=== PATIENT | male | born 1950 | race African-American/Black ===

== ENCOUNTER 2019-03-09 08:06 | Emergency (ER) | payer SELFPAY ==
[~2019-03-09] VITALS: Ht 182.9 cm; Wt 105.0 kg
[2019-03-09 08:45] VITALS: BP 150/92
== END 2019-03-09 09:09 | disposition home or self-care (01) ==
LOC: ER 08:06
DX: B02.9 Zoster without complications (principal); R03.0 Elevated blood-pressure reading, without diagnosis of hypertension
CPT/HCPCS: 99283

== ENCOUNTER 2021-03-03 22:47 | Inpatient (IN) | payer OTHER, MEDICARE ==
[~2021-03-03] VITALS: Ht 182.9 cm; Wt 100.4 kg
[2021-03-03] MEDS ORDERED: NITROGLYCERIN OINT 1GM/INCH UDPKT TD ONE (23:30)
[2021-03-03] MEDS ORDERED: ASPIRIN 81MG TABLET PO ONE (23:30)
[2021-03-04 01:47] LABS: CHLORIDE 109 mEq/L (98-107)
[2021-03-04 01:56] LABS: BASOPHILS % 0.7 % (0.0-2.0); EOSINOPHILS % 1.3 % (0.0-5.0); HEMATOCRIT. 43.9 % (42.0-52.0); HEMOGLOBIN. 14.6 g/dL (14.0-18.0); LYMPHOCYTES % 36.1 % (20.0-50.0); MEAN CORPUSCULAR HEMOGLOBIN 29.6 pg (28.0-32.0); MEAN CORPUSCULAR VOLUME 89.2 fL (80.0-94.0); MEAN PLATELET VOLUME 8.3 fl (7.4-10.4); MONOCYTES % 11.9 % (2.0-8.0); PLATELET 181 x1000/uL (130-400); RED BLOOD CELL COUNT 4.92 mill/uL (4.7-6.1); RED CELL DISTRIBUTION WIDTH 13.3 % (11.6-14.6)
[2021-03-04] MEDS ORDERED: ACETAMINOPHEN 325MG TABLET PO PRN (08:45)
[2021-03-04] MEDS ORDERED: ONDANSETRON HCL 4MG/2ML INJ IV PRN (08:45)
[2021-03-04] MEDS: ASPIRIN 81MG TABLET PO SCH (09:48)
[2021-03-04] MEDS: AMLODIPINE 10MG TABLET PO SCH (09:49)
[2021-03-04] MEDS: FAMOTIDINE 20MG TABLET PO SCH (22:18)
[2021-03-05 01:34] LABS: *AMPHETAMINES SCREEN URINE NEGATIVE (NEGATIVE)
[2021-03-05 01:35] LABS: *BARBITURATES SCREEN URINE NEGATIVE (NEGATIVE); *BENZODIAZEPINES SCREEN URINE NEGATIVE (NEGATIVE); *COCAINE SCREEN URINE NEGATIVE (NEGATIVE); CANNABINOID URINE SCREEN NEGATIVE (NEGATIVE); METHADONE URINE SCREEN NEGATIVE (NEGATIVE); OPIATES URINE SCREEN NEGATIVE (NEGATIVE); PHENCYCLIDINE URINE SCREEN NEGATIVE (NEGATIVE)
[2021-03-05 08:00] VITALS: BP 161/96
[2021-03-05] MEDS: ASPIRIN 81MG TABLET PO SCH (08:55)
[2021-03-05] MEDS: AMLODIPINE 10MG TABLET PO SCH (08:55)
[2021-03-05 11:19] VITALS: BP 161/90
[2021-03-05 12:00] VITALS: BP 141/81
[2021-03-05] MEDS ORDERED: ATOR-2 MT (12:40)
[2021-03-05] MEDS ORDERED: METO-396 PO (12:42)
[2021-03-05] MEDS ORDERED: ICOS1CAP PO (12:43)
[2021-03-05] MEDS ORDERED: ISOS30TA91 MT (12:44)
[2021-03-05] MEDS ORDERED: AMLO5TAB88 MT (12:44)
[2021-03-05] MEDS ORDERED: CLOP75TA33 MT (12:45)
[2021-03-05] MEDS ORDERED: MONT10TA32 MT (12:47)
[2021-03-05 16:00] VITALS: BP 112/70
[2021-03-05 20:00] VITALS: BP 133/77
[2021-03-05] MEDS: FAMOTIDINE 20MG TABLET PO SCH (20:07)
[2021-03-06] VITALS: BP 130/56
[2021-03-06 04:00] VITALS: BP 131/72
[2021-03-06 08:00] VITALS: BP 142/61
[2021-03-06] MEDS: ASPIRIN 81MG TABLET PO SCH (08:23)
[2021-03-06] MEDS: AMLODIPINE 10MG TABLET PO SCH (08:24)
== END 2021-03-06 13:00 | disposition home or self-care (01) | DRG 392 ==
LOC: ER 22:47 → MICUSO 03-04 03:53 → 5WST 03-05 07:17
PROVIDERS: ADMIT Internal Medicine; ATTEND Internal Medicine
DX: K21.9 Gastro-esophageal reflux disease without esophagitis (principal); E87.8 Other disorders of electrolyte and fluid balance, not elsewhere classified; I10 Essential (primary) hypertension; E66.9 Obesity, unspecified; E78.5 Hyperlipidemia, unspecified; I25.10 Atherosclerotic heart disease of native coronary artery without angina pectoris; G90.8 Other disorders of autonomic nervous system; Z68.30 Body mass index [BMI] 30.0-30.9, adult; Z95.5 Presence of coronary angioplasty implant and graft
CPT/HCPCS: 36415; 71045; 80053; 80061; 80305; 83880; 84443; 84484; 85025; 93005; 93306; 99285; J2405

== ENCOUNTER 2025-05-25 20:51 | Emergency (ER) | payer MEDICARE, OTHER ==
[~2025-05-25] VITALS: Ht 182.9 cm; Wt 102.0 kg
[~2025-05-25 20:51] MED LIST: AMLO5TAB88 MT; ATOR-2 MT; CLOP75TA33 MT; ICOS1CAP PO; ISOS30TA91 MT; METO-396 PO; MONT-39 MT
[2025-05-25 21:14] VITALS: TEMP 36.5; O2SAT 100
[2025-05-25] MEDS: SODIUM CHLORIDE 0.9% 1,000 ML IV ONE (21:55)
[2025-05-25 22:10] LABS: BASOPHILS % 0.6 % (0.0-2.0); EOSINOPHILS % 1.2 % (0.0-5.0); HEMATOCRIT. 39.4 % (42.0-52.0); HEMOGLOBIN. 13.1 g/dL (14.0-18.0); LYMPHOCYTES % 29.4 % (20.0-50.0); MEAN PLATELET VOLUME 7.9 fl (7.4-10.4); MONOCYTES % 13.1 % (2.0-8.0); NEUTROPHILS % 55.7 % (40.0-76.0); PLATELET 173 x1000/uL (130-400); RED BLOOD CELL COUNT 4.32 mill/uL (4.7-6.1); RED CELL DISTRIBUTION WIDTH 14.2 % (11.6-14.6)
[2025-05-25 22:34] LABS: CREATININE 1.8 mg/dL (0.6-1.3)
[2025-05-25 22:35] LABS: ETHANOL BLOOD 108 mg/dL (<10); TROPONIN I HIGH SENSITIVITY 4 ng/L (3.0-53); UREA NITROGEN BLOOD 19 mg/dL (9-23)
[2025-05-25 22:36] LABS: ASPARTATE AMINOTRANSFERASE 35 IU/L (<34)
[2025-05-25 22:37] LABS: BILIRUBIN DIRECT 0.3 mg/dL (<=3.0); BILIRUBIN TOTAL 0.7 mg/dL (0.1-1.0); PROTEIN TOTAL 6.7 g/dL (6.0-8.3)
[2025-05-25 23:35] VITALS: BP 124/68; PULSE 75; RESP 18; O2SAT 100
== END 2025-05-25 23:45 | disposition home or self-care (01) ==
LOC: ER 20:51
DX: F10.129 Alcohol abuse with intoxication, unspecified (principal); I51.9 Heart disease, unspecified; E78.00 Pure hypercholesterolemia, unspecified; I10 Essential (primary) hypertension; Z98.890 Other specified postprocedural states; Z79.899 Other long term (current) drug therapy; Y90.5 Blood alcohol level of 100-119 mg/100 ml
CPT/HCPCS: 80076; 80048; 80320; 83690; 85025; 84484; 36415; 93005; 96360; 99284; J7030; G0480